=== PATIENT | male | born 1950 | race African-American/Black ===

== ENCOUNTER 2019-01-30 19:55 | Emergency (ER) | payer OTHER ==
[2019-01-30] MEDS ORDERED: AMOX/K CLAV 875 MG TAB ONE (21:38)
[2019-01-30] MEDS ORDERED: BACI/NEOMYCIN/POLY OINT 15GM TOP ONE (21:38)
[2019-01-30] MEDS ORDERED: TETANUS & DIPHTHERIA TOX,ADULT 0.5 ML VIAL ONE (21:39)
--- NOTE | 2019-01-30 21:41 | EDPHYS ---
Physician Documentation [facility] Name: Willem Navas Age: 68 yrs Sex: Male : 1950 Arrival Date: 01/30/2019 Time: 19:58 Bed 25 Private MD: ED Physician Amol Taylor HPI: 01/30 21:33 This 68 yrs old Black Male presents to ER via Ambulatory with complaints of Cat Bite. cristian 21:33 The patient was bitten on the left calf. Onset: The symptoms/episode began/occurred 1 cristian day(s) ago. Animal information: Patient/Caregiver unable to provide information related to the animal. Secondary to the bite the patient reports an abrasion, erythema, pain. Associated signs and symptoms: The patient has no apparent associated signs or symptoms. Severity of symptoms: At their worst the symptoms were mild, in the emergency department the symptoms are unchanged. The patient has not experienced similar symptoms in the past. Historical: - Allergies: 20:25 No Known Allergies; aj1 - Home Meds: 20:25 blood pressure medicine [Active]; aj1 - PMHx: 20:25 Hypertension; COPD; mesothelieoma; aj1 - Immunization history:: Flu vaccine is not up to date. - Social history:: Smoking status: Patient/guardian denies using tobacco. - Ebola Screening: : Patient denies travel to an Ebola-affected area in the 21 days before illness onset. - Family history:: not pertinent. ROS: 21:33 Constitutional: Negative for fever, chills, and weight loss, Eyes: Negative for injury, cristian pain, redness, and discharge, ENT: Negative for injury, pain, and discharge, Neck: Negative for injury, pain, and swelling, Cardiovascular: Negative for chest pain, palpitations, and edema, Respiratory: Negative for shortness of breath, cough, wheezing, and pleuritic chest pain, Abdomen/GI: Negative for abdominal pain, nausea, vomiting, diarrhea, and constipation, Back: Negative for injury and pain, : Negative for injury, bleeding, discharge, and swelling, Skin: Negative for injury, rash, and discoloration, Neuro: Negative for headache, weakness, numbness, tingling, and seizure, Psych: Negative for depression, anxiety, suicide ideation, homicidal ideation, and hallucinations, Allergy/Immunology: Negative for hives, rash, and allergies, Endocrine: Negative for neck swelling, polydipsia, polyuria, polyphagia, and marked weight changes, Hematologic/Lymphatic: Negative for swollen nodes, abnormal bleeding, and unusual bruising. 21:33 MS/extremity: Positive for pain, tenderness, of the left leg. Exam: 21:33 Constitutional: This is a well developed, well nourished patient who is awake, alert, cristian and in no acute distress. Head/Face: Normocephalic, atraumatic. Eyes: Pupils equal round and reactive to light, extra-ocular motions intact. Lids and lashes normal. Conjunctiva and sclera are non-icteric and not injected. Cornea within normal limits. Periorbital areas with no swelling, redness, or edema. ENT: Nares patent. No nasal discharge, no septal abnormalities noted. Tympanic membranes are normal and external auditory canals are clear. Oropharynx with no redness, swelling, or masses, exudates, or evidence of obstruction, uvula midline. Mucous membranes moist. Neck: Trachea midline, no thyromegaly or masses palpated, and no cervical lymphadenopathy. Supple, full range of motion without nuchal rigidity, or vertebral point tenderness. No Meningismus. Chest/axilla: Normal chest wall appearance and motion. Nontender with no deformity. No lesions are appreciated. Cardiovascular: Regular rate and rhythm with a normal S1 and S2. No gallops, murmurs, or rubs. Normal PMI, no JVD. No pulse deficits. Respiratory: Lungs have equal breath sounds bilaterally, clear to auscultation and percussion. No rales, rhonchi or wheezes noted. No increased work of breathing, no retractions or nasal flaring. Abdomen/GI: Soft, non-tender, with normal bowel sounds. No distension or tympany. No guarding or rebound. No evidence of tenderness throughout. Back: No spinal tenderness. No costovertebral tenderness. Full range of motion. Skin: Warm, dry with normal turgor. Normal color with no rashes, no lesions, and no evidence of cellulitis. Neuro: Awake and alert, GCS 15, oriented to person, place, time, and situation. Cranial nerves II-XII grossly intact. Motor strength 5/5 in all extremities. Sensory grossly intact. Cerebellar exam normal. Normal gait. Psych: Awake, alert, with orientation to person, place and time. Behavior, mood, and affect are within normal limits. 21:33 Musculoskeletal/extremity: ROM: intact in all extremities, Circulation is intact in all extremities. Sensation intact. Compartment Syndrome exam of affected extremity: is normal. DVT Exam: negative Homans' sign noted on exam, no appreciated bluish discoloration, no erythema, no increased warmth, pain, swelling, tenderness. Vital Signs: 20:25 BP 135 / 84; Pulse 92; Resp 18; Temp 97.5; Pulse Ox 93% on R/A; Weight 83.91 kg (R); aj1 Height 5 ft. 8 in. (172.72 cm) (R); Pain 0/10; 21:55 BP 125 / 78; Pulse 89; Resp 18; Temp 98; Pulse Ox 100% on R/A; mg2 20:25 Body Mass Index 28.13 (83.91 kg, 172.72 cm) aj1 MDM: 20:59 Patient medically screened. [facility] 21:37 Data reviewed: vital signs, nurses notes. [facility] Administered Medications: 21:42 Drug: Augmentin 875 mg Route: PO; mg2 21:45 Follow up: Response: No adverse reaction; Medication administered at discharge. [facility] [place] 21:43 Drug: Neosporin Ointment 1 application Route: Topical; Site: affected area; [facility] [place] 21:45 Follow up: Response: No adverse reaction; Medication administered at discharge. 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 Exp: [facility] [place] 09/23/2020. Lot #: [id number]. } Route: IM; Site: left deltoid; 21:45 Follow up: Response: No adverse reaction; Medication administered at discharge. [facility] [place] Disposition: 01/30/19 21:40 Discharged to Home. Impression: Other superficial bite, left lower leg - cat. - Condition is Stable. - Discharge Instructions: Animal Bite, [id number], Animal Bite. - Prescriptions for Augmentin 875- 125 mg Oral Tablet - take 1 tablet by ORAL route every 12 hours for 7 days; 14 tablet. - Medication Reconciliation Form, Thank You Letter, Antibiotic Education, Prescription Opioid Use form. - Follow up: Private Physician; When: 2 - 3 days; Reason: Recheck today's complaints, Continuance of care, Re-evaluation by your physician. - Problem is new. - Symptoms have improved. Signatures: Charlotte Terry RN RN aj1 Amol Taylor MD MD cha Gardose, Michele, RN RN mg2 Corrections: (The following items were deleted from the chart) 21:57 21:40 01/30/2019 21:40 Discharged to Home. Impression: Other superficial bite, left mg2 lower leg - cat. Condition is Stable. Forms are Medication Reconciliation Form, Thank You Letter, Antibiotic Education, Prescription Opioid Use. Follow up: Private Physician; When: 2 - 3 days; Reason: Recheck today's complaints, Continuance of care, Re-evaluation by your physician. Problem is new. Symptoms have improved. cristian
--- NOTE | 2019-01-30 21:41 | ER ---
Nurse's Notes [facility] Name: Willem Navas Age: 68 yrs Sex: Male : 1950 Arrival Date: 01/30/2019 Time: 19:58 Bed 25 Private MD: Diagnosis: Other superficial bite, left lower leg-cat Presentation: 01/30 20:22 Presenting complaint: Patient states: "I got scratched by a cat or it bit me or aj1 something, Im just trying to get a tetanus shot or whatever to solve the problem" Scratch noted to right calf. Denies fever, denies drainage. Transition of care: patient was not received from another setting of care. Onset of symptoms was January 29, 2019. Risk Assessment: Do you want to hurt yourself or someone else? Patient reports no desire to harm self or others. Initial Sepsis Screen: Does the patient meet any 2 criteria? No. Patient's initial sepsis screen is negative. Does the patient have a suspected source of infection? No. Patient's initial sepsis screen is negative. Care prior to arrival: None. 20:22 Method Of Arrival: Ambulatory aj 20:22 Acuity: LAWRENCE 4 aj1 Triage Assessment: 20:25 General: Appears in no apparent distress. comfortable, Behavior is calm, cooperative, aj1 appropriate for age. Pain: Denies pain. Neuro: Level of Consciousness is awake, alert, obeys commands. Cardiovascular: Patient's skin is warm and dry. Respiratory: Airway is patent Respiratory effort is even, unlabored, Respiratory pattern is regular, symmetrical. 21:50 Bite description: bite sustained to left calf by a cat, animal information: mg2 vaccination(s) is unknown. Historical: - Allergies: 20:25 No Known Allergies; aj1 - Home Meds: 20:25 blood pressure medicine [Active]; aj1 - PMHx: 20:25 Hypertension; COPD; mesothelieoma; aj1 - Immunization history:: Flu vaccine is not up to date. - Social history:: Smoking status: Patient/guardian denies using tobacco. - Ebola Screening: : Patient denies travel to an Ebola-affected area in the 21 days before illness onset. - Family history:: not pertinent. Screenin:49 Abuse screen: Denies threats or abuse. Denies injuries from another. Nutritional mg2 screening: No deficits noted. Tuberculosis screening: No symptoms or risk factors identified. Fall Risk None identified. Assessment: 21:50 General: Appears in no apparent distress. comfortable, Behavior is calm, cooperative. mg2 Pain: Denies pain. Neuro: Level of Consciousness is awake, alert, obeys commands, Oriented to person, place, time, situation. Cardiovascular: Capillary refill < 3 seconds Patient's skin is warm and dry. Respiratory: Airway is patent Respiratory effort is even, unlabored. GI: Abdomen is. : No deficits noted. EENT: No signs and/or symptoms were reported regarding the EENT system. Derm: Skin has skin tears on scratch in the left leg Skin is pink, warm \\T\\ dry. normal. Musculoskeletal: Circulation, motion, and sensation intact. Capillary refill < 3 seconds. Vital Signs: 20:25 BP 135 / 84; Pulse 92; Resp 18; Temp 97.5; Pulse Ox 93% on R/A; Weight 83.91 kg (R); aj1 Height 5 ft. 8 in. (172.72 cm) (R); Pain 0/10; 21:55 BP 125 / 78; Pulse 89; Resp 18; Temp 98; Pulse Ox 100% on R/A; mg2 20:25 Body Mass Index 28.13 (83.91 kg, 172.72 cm) aj1 ED Course: 19:58 Patient arrived in ED. cl3 20:25 Triage completed. aj1 20:25 Arm band placed on Patient placed in waiting room, Patient notified of wait time. aj1 20:59 Amol Taylor MD is Attending Physician. [facility] 21:37 Talib Maki RN is Primary Nurse. mg2 21:49 No provider procedures requiring assistance completed. Patient did not have IV access mg2 during this emergency room visit. 21:52 Patient has correct armband on for positive identification. mg2 Administered Medications: 21:42 Drug: Augmentin 875 mg Route: PO; mg2 21:45 Follow up: Response: No adverse reaction; Medication administered at discharge. mg2 21:43 Drug: Neosporin Ointment 1 application Route: Topical; Site: affected area; mg2 21:45 Follow up: Response: No adverse reaction; Medication administered at discharge. 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 Exp: mg2 09/23/2020. Lot #: [id number]. } Route: IM; Site: left deltoid; 21:45 Follow up: Response: No adverse reaction; Medication administered at discharge. mg2 Outcome: 21:40 Discharge ordered by . cristian 21:56 Discharged to home ambulatory. mg2 21:56 Condition: stable 21:56 Discharge instructions given to patient, Instructed on discharge instructions, follow up and referral plans. Demonstrated understanding of instructions, follow-up care, Prescriptions given X 1. 21:57 Patient left the ED. mg2 Signatures: Charlotte Terry, RN RN aj1 Amol Taylor MD MD cha Gardose, Michele, RN RN mg2 Vidal Rhoades cl3 Corrections: (The following items were deleted from the chart) 21:57 21:56 Discharge instructions given to patient, Instructed on discharge instructions, mg2 follow up and referral plans. Demonstrated understanding of instructions, follow-up care, mg2
[2019-01-30 22:45] VITALS: BP 125/78; TEMP 98; O2SAT 100
== END 2019-01-30 21:57 | disposition home or self-care (01) ==
LOC: ER 19:55
DX: S80.872A Other superficial bite, left lower leg, initial encounter (principal); W55.01XA Bitten by cat, initial encounter; Y93.9 Activity, unspecified; Y92.9 Unspecified place or not applicable; I10 Essential (primary) hypertension; Z23 Encounter for immunization
CPT/HCPCS: 90471; 90714; 99283